=== PATIENT | male | born 2000 | race Hispanic/Latino ===

== ENCOUNTER 2022-11-26 19:33 | Emergency (ER) | payer BC ==
[2022-11-26] MEDS ORDERED: IBUPROFEN 400 MG TAB ONE (20:06)
[2022-11-26] MEDS ORDERED: ONDANSETRON 4 MG (ODT) TAB ONE (20:08)
[2022-11-26] MEDS ORDERED: BENZONATATE 100 MG CAP PO ONE (20:09)
--- NOTE | 2022-11-26 20:31 | RAD REPORT ---
EXAM DESCRIPTION: RAD - Chest Pa And Lat (2 Views) - 11/26/2022 8:19 pm CLINICAL HISTORY: Cough;Fever Chest pain. COMPARISON: <Comparisons> FINDINGS: Hazy interstitial opacities, greatest in the left lung base, likely representing viral inf ection. No focal consolidation to suggest bacterial pneumonia seen. The heart is normal in size. No d isplaced fractures.
[2022-11-26] MEDS ORDERED: AZITHROMYCIN 250 MG TAB ONE (21:55)
[2022-11-26] MEDS ORDERED: CEFTRIAXONE 1000 MG/VIAL ONE (21:55)
[2022-11-26] MEDS ORDERED: LIDOCAINE 1% MPF 2 ML AMPULE ONE (21:55)
--- NOTE | 2022-11-26 21:55 | EDPHYS ---
Physician Documentation [facility] Name: Michael Oneill Age: 22 yrs Sex: Male : 2000 Arrival Date: 11/26/2022 Time: 19:33 Bed 9 Private MD: ED Physician Sony De La O HPI: 11/26 20:10 This 22 yrs old Male presents to ER via Ambulatory with complaints of Cough, cp Fever, Headache, Wheezing > 1 Year. 20:10 The patient or guardian reports cough, that is intermittent. Onset: The cp symptoms/episode began/occurred 3 day(s) ago. 20:10 Severity of symptoms: in the emergency department the symptoms are unchanged, despite cp home interventions. 20:10 Associated signs and symptoms: Pertinent positives: fever, sore throat, headache, cp wheezing. Historical: - Allergies: 19:58 No Known Allergies; nj1 - PMHx: 19:58 None; nj1 - PSHx: 19:58 None; nj1 - Immunization history:: Client reports having NOT received the Covid vaccine. - Social history:: Smoking status: Patient denies any tobacco usage or history of. ROS: 20:20 Constitutional: Positive for body aches, fever, Negative for poor PO intake. cp 20:20 Eyes: Negative for injury, pain, redness, and discharge. cp 20:20 Neck: Negative for pain with movement, pain at rest, stiffness. 20:20 Cardiovascular: Negative for chest pain, edema. 20:20 Respiratory: Positive for cough, shortness of breath, wheezing, Negative for hemoptysis. 20:20 Abdomen/GI: Negative for abdominal pain, vomiting, diarrhea, constipation. 20:20 Neuro: Positive for headache, Negative for altered mental status, numbness, syncope, weakness. 20:20 All other systems are negative. Exam: 20:25 Constitutional: The patient appears in no acute distress, alert, awake, cp non-diaphoretic, non-toxic, well developed, well nourished, obese. 20:25 Head/Face: Normocephalic, atraumatic. cp 20:25 Eyes: Periorbital structures: appear normal, Conjunctiva: normal, no exudate, no injection, Sclera: no appreciated abnormality, Lids and lashes: appear normal, bilaterally. 20:25 ENT: External ear(s): are unremarkable, Ear canal(s): are normal, clear, TM's: dullness, bilaterally, Nose: is normal, Mouth: Lips: moist, Oral mucosa: moist, Posterior pharynx: Airway: no evidence of obstruction, patent, Tonsils: with erythema, no enlargement, no exudate, swelling, is not appreciated, erythema, that is mild, exudate, is not appreciated. 20:25 Neck: ROM/movement: is normal, is supple, without pain, no range of motions limitations, no meningismus, Lymph nodes: no appreciated lymphadenopathy. 20:25 Chest/axilla: Inspection: normal. 20:25 Cardiovascular: Rate: tachycardic, Rhythm: regular. 20:25 Respiratory: the patient does not display signs of respiratory distress, Respirations: cp normal, no use of accessory muscles, no retractions, labored breathing, is not present, Breath sounds: bronchial sounds, that are mild, are heard diffusely, decreased breath sounds, are not appreciated, rhonchi, are not appreciated, stridor, is not appreciated, wheezing: is not appreciated. 20:25 Abdomen/GI: Inspection: obese Bowel sounds: active, all quadrants, Palpation: abdomen cp is soft and non-tender, in all quadrants. 20:25 Back: pain, is absent, ROM is normal. 20:25 Skin: cellulitis, is not appreciated, no rash present. 20:25 Neuro: Orientation: to person, place \T\ time. Mentation: is normal, Cerebellar function: is grossly normal, Motor: moves all fours, strength is normal, Sensation: is normal. Vital Signs: 19:55 BP 133 / 76; Pulse 108; Resp 18; Temp 102; Pulse Ox 99% ; Weight 127.01 kg; Height 5 nj1 ft. 7 in. ; Pain 7/10; 21:39 BP 127 / 82; Pulse 78; Resp 18; Temp 99(O); Pulse Ox 100% on R/A; mb9 21:55 BP 120 / 70; Pulse 74; Resp 17; Pulse Ox 98% on R/A; mb9 19:55 Body Mass Index 43.85 (127.01 kg, 170.18 cm) [facility] 19:55 Pain Scale: Adult [facility] MDM: 20:16 Patient medically screened. cp 21:00 Differential Diagnosis: Bronchitis Influenza Otitis Media Viral Syndrome Pneumonia. 21:53 Data reviewed: vital signs, nurses notes, lab test result(s), radiologic studies, plain cp films. 21:53 Consideration of Admission/Observation Escalation of care including admission/observation considered. 21:53 I considered the following discharge prescriptions or medication management in the emergency department Medications were administered in the Emergency Department. See MAR. Test considered but Not performed: Labs: CBC, BMP. Counseling: I had a detailed discussion with the patient and/or guardian regarding: the historical points, exam findings, and any diagnostic results supporting the discharge/admit diagnosis, lab results, radiology results, the need for outpatient follow up, a family practitioner, to return to the emergency department if symptoms worsen or persist or if there are any questions or concerns that arise at home. Response to treatment: the patient's symptoms have markedly improved after treatment, and as a result, I will discharge patient. 11/26 20:01 Order name: Influenza Screen (a \T\ B); Complete Time: 21:32 11/26 21:33 Interpretation: Reviewed. 11/26 20:01 Order name: Strep; Complete Time: 21:32 11/26 21:33 Interpretation: Reviewed. 11/26 20:01 Order name: COVID-19 SARS RT PCR; Complete Time: 21:32 11/26 21:33 Interpretation: Reviewed. 11/26 20:52 Order name: Throat Culture [facility] 11/26 20:01 Order name: XRAY Chest Pa And Lat (2 Views); Complete Time: 21:32 11/26 21:33 Interpretation: Report reviewed. 11/26 21:34 Order name: Vital Signs: please update to include temp; Complete Time: 21:42 Administered Medications: 20:04 Drug: Tessalon Perle PO 200 mg Route: PO; nj1 20:04 Drug: Ondansetron PO 4 mg Route: PO; nj1 20:04 Drug: Ibuprofen PO 800 mg Route: PO; nj1 21:55 Drug: AZITHromycin PO 500 mg Route: PO; mb9 22:02 Follow up: Response: No adverse reaction mb9 21:55 Drug: Rocephin (cefTRIAXone) IM 1 grams Route: IM; Site: right gluteus; mb9 22:02 Follow up: Response: No adverse reaction mb9 Disposition: 11/27 07:48 Co-signature as Attending Physician, Sony De La O DO I was immediately available on-site ms3 in the Emergency Department for consultation in the care of the patient. . Disposition Summary: 11/26/22 21:54 Discharge Ordered Location: Home cp Problem: new cp Symptoms: have improved cp Condition: Stable cp Diagnosis - Pneumonia due to other specified infectious organisms cp Followup: cp - With: Private Physician - When: 2 - 3 days - Reason: Recheck today's complaints Discharge Instructions: - Discharge Summary Sheet cp - Community-Acquired Pneumonia, Adult cp Forms: - Medication Reconciliation Form cp - Thank You Letter cp - Antibiotic Education cp - Prescription Opioid Use cp - Work release form sb4 Prescriptions: - Bromfed DM 2-30-10 mg/5 mL Oral syrup - administer 10 milliliter by ORAL route every 6 hours as needed for cold cp symptoms; 180 milliliter; Refills: 0, Product Selection Permitted - Ibuprofen 800 mg Oral Tablet - take 1 tablet by ORAL route every 8 hours As needed take with food; 30 tablet; cp Refills: 0, Product Selection Permitted - Zithromax Z-Butch 250 mg Oral Tablet - take 1 tablet by ORAL route as directed for 5 days Day 1 - take two (2) tablets cp one time. Day 2, 3, 4 , 5 take one (1) tablet once daily.; 6 tablet; Refills: 0, Product Selection Permitted Signatures: Dispatcher [employer] EDMS Lv Chatman PA PA cp Sims, Marcus, DO DO ms3 Alexus Nelson RN RN mb9 Sarah Junior RN RN nj1
--- NOTE | 2022-11-26 21:55 | ER ---
Nurse's Notes [facility] Name: Michael Oneill Age: 22 yrs Sex: Male : 2000 Arrival Date: 11/26/2022 Time: 19:33 Bed 9 Private MD: Diagnosis: Pneumonia due to other specified infectious organisms Presentation: 11/26 19:55 Chief complaint: Patient states: Cough and congestion for 3 days. Today, at around 6pm feliciano started feeling chills, body aches and dyspnea. Has been taking generic dayquil for symptoms. Coronavirus screen: Vaccine status: Patient reports being unvaccinated. Ebola Screen: Patient denies travel to an Ebola-affected area in the 21 days before illness onset. Initial Sepsis Screen: Does the patient meet any 2 criteria? Temp <36.0*C (96.8*F)) or > 38.3*C (100.9*F). HR > 90 bpm. Yes Does the patient have a suspected source of infection? Yes: Productive cough/pneumonia If YES to both, name of provider notified: Lv PEÑA. Risk Assessment: Do you want to hurt yourself or someone else? Patient reports no desire to harm self or others. Onset of symptoms was November 23, 2022. 19:55 Method Of Arrival: Ambulatory [facility] 19:55 Acuity: JOSIE 3 nj1 Historical: - Allergies: 19:58 No Known Allergies; nj1 - PMHx: 19:58 None; nj1 - PSHx: 19:58 None; nj1 - Immunization history:: Client reports having NOT received the Covid vaccine. - Social history:: Smoking status: Patient denies any tobacco usage or history of. Screenin:41 [facility] ED Fall Risk Assessment (Adult) History of falling in the last 3 months, mb9 including since admission No falls in past 3 months (0 pts) Confusion or Disorientation No (0 pts) Intoxicated or Sedated No (0 pts) Impaired Gait No (0 pts) Mobility Assist Device Used No (0 pt) Altered Elimination No (0 pt) Score/Fall Risk Level 0 - 2 = Low Risk Oriented to surroundings, Maintained a safe environment, Educated pt \T\ family on fall prevention, incl call for assistance when getting out of bed. Abuse screen: Denies threats or abuse. Nutritional screening: No deficits noted. Tuberculosis screening: No symptoms or risk factors identified. Assessment: 21:36 Reassessment: pt brought back to ER room. mb9 21:37 General: Appears uncomfortable, Behavior is calm, cooperative, appropriate for age. mb9 Pain: Complains of pain in headache Pain does not radiate. Pain currently is 5 out of 10 on a pain scale. Quality of pain is described as throbbing, Pain began suddenly, Is intermittent, Aggravated by coughing. Neuro: Pena Agitation-Sedation Scale (RASS): 0 - Alert and Calm Level of Consciousness is awake, alert, obeys commands, Oriented to person, place, time, situation, Appropriate for age. Cardiovascular: Patient's skin is warm and dry. Respiratory: Airway is patent Respiratory effort is even, unlabored, Respiratory pattern is regular, Breath sounds are clear bilaterally. GI: Abdomen is round non-distended, Bowel sounds present X 4 quads. : No signs and/or symptoms were reported regarding the genitourinary system. EENT: No signs and/or symptoms were reported regarding the EENT system. Derm: Skin is pink, warm \T\ dry. Musculoskeletal: Range of motion: intact in all extremities. 21:57 Reassessment: No changes from previously documented assessment. Patient and/or family mb9 updated on plan of care and expected duration. Pain level reassessed. Patient is alert, oriented x 3, equal unlabored respirations, skin warm/dry/pink. Vital Signs: 19:55 BP 133 / 76; Pulse 108; Resp 18; Temp 102; Pulse Ox 99% ; Weight 127.01 kg; Height 5 nj1 ft. 7 in. ; Pain 7/10; 21:39 BP 127 / 82; Pulse 78; Resp 18; Temp 99(O); Pulse Ox 100% on R/A; mb9 21:55 BP 120 / 70; Pulse 74; Resp 17; Pulse Ox 98% on R/A; mb9 19:55 Body Mass Index 43.85 (127.01 kg, 170.18 cm) nj1 19:55 Pain Scale: Adult ca1 ED Course: 19:36 Patient arrived in ED. ja2 19:47 Lv Chatman PA is PHCP. cp 19:47 Sony De La O DO is Attending Physician. cp 19:58 Triage completed. nj1 20:04 Arm band placed on. nj1 20:11 COVID-19 SARS RT PCR Sent. nj1 20:11 Strep Sent. nj1 20:11 Influenza Screen (a \T\ B) Sent. nj1 20:20 XRAY Chest Pa And Lat (2 Views) In Process Unspecified. EDMS 21:36 Alexus Nelson, RN is Primary Nurse. mb9 21:41 Placed in gown. Bed in low position. Call light in reach. Client placed on continuous mb9 cardiac and pulse oximetry monitoring. NIBP monitoring applied. 21:41 No provider procedures requiring assistance completed. Patient did not have IV access mb9 during this emergency room visit. Administered Medications: 20:04 Drug: Tessalon Perle PO 200 mg Route: PO; nj1 20:04 Drug: Ondansetron PO 4 mg Route: PO; nj1 20:04 Drug: Ibuprofen PO 800 mg Route: PO; nj1 21:55 Drug: AZITHromycin PO 500 mg Route: PO; mb9 22:02 Follow up: Response: No adverse reaction mb9 21:55 Drug: Rocephin (cefTRIAXone) IM 1 grams Route: IM; Site: right gluteus; mb9 22:02 Follow up: Response: No adverse reaction mb9 Medication: 21:41 VIS not applicable for this client. mb9 Outcome: 21:54 Discharge ordered by . cp 21:57 Discharged to home ambulatory. mb9 21:57 Condition: stable 21:57 Discharge instructions given to patient, Instructed on discharge instructions, follow up and referral plans. Demonstrated understanding of instructions, follow-up care, medications, Prescriptions given X 4. 22:04 Patient left the ED. mb9 Signatures: Dispatcher [employer] EDMS Lv Chatman PA PA cp Audelia Roque Mary Beth, RN RN mb9 Sarah Junior RN RN nj1 Corrections: (The following items were deleted from the chart) 21:36 21:36 General: Appears mb9 mb9 21:42 21:39 BP 127 / 82; Pulse 78bpm; Resp 18bpm; Pulse Ox 100% RA; mb9 mb9
[2022-11-26 22:11] VITALS: TEMP 99
[2022-11-26 22:12] VITALS: BP 120/70; O2SAT 98
== END 2022-11-26 22:04 | disposition home or self-care (01) ==
LOC: ER 19:33
DX: J16.8 Pneumonia due to other specified infectious organisms (principal); Z20.822 Contact with and (suspected) exposure to COVID-19
CPT/HCPCS: 87070; 87081; 87804 ×2; 71046; U0003; Q0162; J0696